=== PATIENT | female | born 1960 | race Caucasian/White ===

== ENCOUNTER 2019-10-20 16:58 | Observation (INO) | payer OTHER ==
--- NOTE | 2019-10-20 17:19 | PDOC ---
Rapid Medical Evaluation Time Seen by Provider: 10/20/19 17:14 Medical Evaluation: Allergies Allergy/AdvReac Type Severity Reaction Status Date / Time No Known Allergies Allergy Verified 01/16/15 16:46 10/20/19 17:15 I performed a brief in-person evaluation of this patient. Pt is a 59 y/o female who presents to the ED with complaint of upper abdominal pain. Started diffuse yesterday but is upper today. She denies nausea and vomiting. Pertinent physical exam findings: +epigastric abdominal pain to palp, no rebound or rigidity I have ordered the following: cbc, cmp Patient to proceed to ED for further evaluation. Discharge Disposition - Diagnosis Upper abdominal pain - Referrals - Patient Instructions - Post Discharge Activity
[2019-10-20 17:21] VITALS: BMI 24.2
[2019-10-20 18:00] LABS: BASO % 0.1 % (0-2.0); EOS % 1.2 % (0-4.5); HEMATOCRIT 39.4 % (32.4-45.2); HEMOGLOBIN 12.9 GM/dL (10.7-15.3); LYMPH % 13.9 % (8-40); MCH 28.1 pg (25.7-33.7); MCHC 32.8 g/dl (32.0-36.0); MEAN CELL VOLUME 85.7 fl (80-96); MEAN PLT VOLUME 8.4 fl (7.5-11.1); MONO % 7.9 % (3.8-10.2); NEUT % 76.9 % (42.8-82.8); PLATELET COUNT 266 K/MM3 (134-434); RDW 14.9 % (11.6-15.6); WHITE BLOOD COUNT 9.5 K/mm3 (4.0-10.0)
--- NOTE | 2019-10-20 18:03 | PDOC ---
History of Present Illness - General Chief Complaint: Pain Stated Complaint: ABDOMINAL PAIN Time Seen by Provider: 10/20/19 17:14 History Source: Patient, Old Records Exam Limitations: No Limitations - History of Present Illness Travel History: No Initial Comments: 10/20/19 17:59 HISTORY OF PRESENT ILLNESS: 59-year-old woman with past medical history of hypertension presents emergency department for evaluation of abdominal pain for 2 days which she describes as a "gassy" sensation. Patient reports the pain started as a diffuse abdominal pain yesterday and is now located in the upper abdomen worse in the epigastric region. She denies any nausea or vomiting. Patient reports she had a large bowel movement last night after 3 days from holding her stool due to traveling and not wanting to use strange toilets. Patient reports she was eating fruits and other people who ate similar foods are not having any symptoms. She denies fevers, chills, chest pain, shortness of breath. No recent travel or sick contacts. PAST MEDICAL HISTORY: Hypertension SURGICAL HISTORY: x2 ALLERGIES: No known drug allergies REVIEW OF SYSTEMS General/Constitutional: Denies fever or chills. Denies weakness, weight change. HEENT: Denies change in vision. Denies ear pain or discharge. Denies sore throat. Cardiovascular: Denies chest pain or shortness of breath. Respiratory: Denies cough, wheezing, or hemoptysis. Gastrointestinal: See HPI Genitourinary: Denies dysuria, frequency, or change in urination. Musculoskeletal: Denies joint or muscle swelling or pain. Denies neck or back pain. Skin and breasts: Denies rash or easy bruising. Neurologic: Denies headache, vertigo, loss of consciousness, or loss of sensation. Psychiatric: Denies depression or anxiety. Endocrine: Denies increased thirst. Denies abnormal weight change. Hematologic/Lymphatic: Denies anemia, easy bleeding, or history of blood clots. Allergic/Immunologic: Denies hives or skin allergy. Denies latex allergy. PHYSICAL EXAM General Appearance: Well-appearing, appropriately dressed. No apparent distress, no intoxication. HEENT: EOMI, PERRLA, normal ENT inspection, normal voice, TMs normal, pharynx normal. No conjunctival pallor. No photophobia, scleral icterus. Neck: Supple. Trachea midline. No tenderness, rigidity, carotid bruit, stridor, lymphadenopathy, or thyromegaly. Respiratory/Chest: Lungs CTAB. No shortness of breath, chest tenderness, respiratory distress, accessory muscle use. No crackles, rales, rhonchi, stridor, wheezing, dullness Cardiovascular: RRR. S1, S2. No JVD, murmur, bradycardia, tachycardia. Gastrointestinal/Abdominal: Normal bowel sounds. Abdomen soft, non-distended. Epigastric and right upper quadrant tenderness. No rebound tenderness. No organomegaly, pulsatile mass, guarding, hernia, hepatomegaly, splenomegaly. Lymphatic: No adenopathy, tenderness. Musculoskeletal/Extremities: Normal inspection. FROM of all extremities, normal capillary refill. Pelvis Stable. No CVA tenderness. No tenderness to extremities, pedal edema, swelling, erythema or deformity. Past History - Medical History Allergies/Adverse Reactions: Allergies Allergy/AdvReac Type Severity Reaction Status Date / Time No Known Allergies Allergy Verified 10/20/19 17:19 Home Medications: Ambulatory Orders NK [No Known Home Medication] 01/16/15 COPD: No HTN: Yes - Psycho-Social/Smoking History Smoking History: Never smoked - Substance Abuse Hx (Audit-C & DAST Scrn) How often the patient has a drink containing alcohol: Never Score: In Men: 4 or > Positive; In Women: 3 or > Positive: 0 Screen Result (Pos requires Nsg. Audit-10AR): Negative In the last yr the pt used illegal drug/Rx for NonMed reason: No Score: Yes response is considered Positive: 0 Screen Result (Positive result requires Nsg. DAST-10): Negative *Physical Exam - Vital Signs Last Vital Signs Temp Pulse Resp BP Pulse Ox 98.5 F 119 H 16 161/66 99 10/20/19 17:19 10/20/19 17:19 10/20/19 17:19 10/20/19 17:19 10/20/19 17:19 ED Treatment Course - LABORATORY CBC & Chemistry Diagram: 10/20/19 17:38 10/20/19 17:38 - RADIOLOGY Radiology Studies Ordered: Category Date Time Status CHEST PA & LAT [RAD] Stat Radiology 10/20/19 17:55 Ordered GALLBLADDER US [US] Stat Ultrasound 10/20/19 17:55 Ordered Medical Decision Making - Medical Decision Making 10/20/19 18:02 A/P: 59-year-old woman with abdominal pain for 2 days Heart rate noted at 119 upon arrival. S1-S2 present. No murmur, rub or gallop noted. Tenderness in the epigastric and right upper quadrant regions. No guarding is present Labs including troponin and lipase Urinalysis, urine culture EKG Chest x-ray Right upper quadrant ultrasound Reassess 10/20/19 21:16 Laboratory Tests 10/20/19 10/20/19 10/20/19 17:38 17:38 17:38 WBC 9.5 RBC 4.60 Hgb 12.9 Hct 39.4 MCV 85.7 MCH 28.1 MCHC 32.8 RDW 14.9 Plt Count 266 MPV 8.4 Absolute Neuts (auto) 7.3 Neutrophils % 76.9 Lymphocytes % 13.9 Monocytes % 7.9 Eosinophils % 1.2 Basophils % 0.1 Nucleated RBC % 0 Sodium 138 Potassium 3.7 Chloride 102 Carbon Dioxide 25 Anion Gap 11 BUN 10.0 Creatinine 0.6 Est GFR (CKD-EPI)AfAm 114.82 Est GFR (CKD-EPI)NonAf 99.07 Random Glucose 95 Calcium 9.3 Total Bilirubin 0.9 AST 17 ALT 24 Alkaline Phosphatase 91 Creatine Kinase 62 Troponin I < 0.02 Total Protein 8.2 Albumin 3.9 Lipase 684 H Urine Color Yellow Urine Appearance Clear Urine pH 8.0 Ur Specific [place] 1.005 L Urine Protein Negative Urine Glucose (UA) Negative Urine Ketones Negative Urine Blood Negative Urine Nitrite Negative Urine Bilirubin Negative Urine Urobilinogen 0.2 Ur Leukocyte Esterase Negative Patient remains tender in the epigastric region. Patient given sips of water which created increased pain in the epigastrium. Gallbladder ultrasound is read by imaging on-call: Midline hepatic cyst present. Gallbladder wall polyp. No gallstones or pericholecystic fluid present. As patient is continued to have pain I will contact the hospitalist for admiss ion for observation. Case has been discussed with nurse practitioner Dante of the hospitalist service who accepts patient under Dr. Hayward. Discharge - Discharge Information Problems reviewed: Yes Clinical Impression/Diagnosis: Elevated lipase Condition: Fair - Admission Yes - Follow up/Referral - Patient Discharge Instructions - Post Discharge Activity
[2019-10-20 18:04] LABS: URINE APPEARANCE CLEAR; URINE BILIRUBIN NEGATIVE (NEGATIVE); URINE COLOR YELLOW; URINE GLUCOSE (UA) NEGATIVE (NEGATIVE); URINE KETONE NEGATIVE (NEGATIVE); URINE LEUK ESTERASE NEGATIVE (NEGATIVE); URINE NITRITE NEGATIVE (NEGATIVE); URINE PROTEIN NEGATIVE (NEGATIVE); URINE UROBILINOGEN 0.2 mg/dL (0.2-1.0)
[2019-10-20] MEDS ORDERED: MAG HYDROX/AL HYDROX/SIMETH 30 ML UNIT-DOSE CUP PO ONE (18:10)
[2019-10-20] MEDS ORDERED: FAMOTIDINE 20 MG TABLET PO ONE (18:10)
[2019-10-20 18:43] LABS: ALBUMIN 3.9 g/dl (3.4-5.0); ALK PHOS 91 U/L (45-117); ANION GAP 11 MMOL/L (8-16); BILIRUBIN,TOTAL 0.9 mg/dL (0.2-1); CALCIUM 9.3 mg/dL (8.5-10.1); CHLORIDE 102 mmol/L (98-107); CO2 25 mmol/L (21-32); CREATININE 0.6 mg/dL (0.55-1.3); GLUCOSE,RANDOM 95 mg/dL (74-106); LIPASE 684 U/L (73-393); POTASSIUM 3.7 mmol/L (3.5-5.1); SGOT/AST 17 U/L (15-37); SGPT/ALT 24 U/L (13-61); SODIUM 138 mmol/L (136-145); TOT PROT 8.2 g/dl (6.4-8.2)
[2019-10-20] MEDS ORDERED: FAMOTIDINE 20 MG TABLET ONE (18:56)
[2019-10-20] MEDS ORDERED: MAG HYDROX/AL HYDROX/SIMETH 30 ML UNIT-DOSE CUP ONE (18:56)
[2019-10-20] MEDS ORDERED: SODIUM CHLORIDE 1,000 ML IV STA (20:27)
--- NOTE | 2019-10-20 21:20 | HP ---
CHIEF COMPLAINT: Abdominal Pain PCP: Dr Valadez HISTORY OF PRESENT ILLNESS: This is a 59 y/o female with a PMHx of HTN. Who presents to the ED with epigastric pain with radiation across the abdomen. Patient describes the pain as a constant ache. Patient reports eating hotdogs the night before and having c ereal with milk that today. She reports having 3 BMs formed. Patient denies N/V, diarrhea. Patient denies fever, chills, cough, SOB, dizziness, BOWLING, CP, palpitations, melena, hematochezia, hematuria, dysuria. No baseline Colonoscopy ER course was notable for: (1) Lipase 684 (2) Gallbladder US- midline hepatic cyst present. Gallbladder wall polyp. No gallstones or pericholecystic fluid present (3) Recent Travel: None PAST MEDICAL HISTORY: HTN PAST SURGICAL HISTORY: x2 Social History: Smoking: Never Alcohol: Denies Drugs: Denies Lives with family, employed [employer], [employer] [facility] [facility] Allergies No Known Allergies Allergy (Verified 10/20/19 17:19) HOME MEDICATIONS: Home Medications Medication Instructions Recorded NK [No Known Home Medication] 01/16/15 REVIEW OF SYSTEMS CONSTITUTIONAL: loss of appetite Absent: fever, chills, diaphoresis, generalized weakness, malaise, weight change HEENT: Absent: rhinorrhea, nasal congestion, throat pain, throat swelling, difficulty swallowing, mouth swelling, ear pain, eye pain, visual changes CARDIOVASCULAR: Absent: chest pain, syncope, palpitations, irregular heart rate, lightheadedness, peripheral edema RESPIRATORY: Absent: cough, shortness of breath, dyspnea with exertion, orthopnea, wheezing, stridor, hemoptysis GASTROINTESTINAL: abdominal pain Absent: abdominal distension, nausea, vomiting, diarrhea, constipation, melena, hematochezia GENITOURINARY: Absent: dysuria, frequency, urgency, hesitancy, hematuria, flank pain, genital pain MUSCULOSKELETAL: Absent: myalgia, arthralgia, joint swelling, back pain, neck pain SKIN: Absent: rash, itching, pallor HEMATOLOGIC/IMMUNOLOGIC: Absent: easy bleeding, easy bruising, lymphadenopathy, frequent infections ENDOCRINE: Absent: unexplained weight gain, unexplained weight loss, heat intolerance, cold intolerance NEUROLOGIC: Absent: headache, focal weakness or paresthesias, dizziness, unsteady gait, seizure, mental status changes, bladder or bowel incontinence PSYCHIATRIC: Absent: anxiety, depression, suicidal or homicidal ideation, hallucinations. PHYSICAL EXAMINATION Vital Signs - 24 hr 10/20/19 17:19 Temperature 98.5 F Pulse Rate 119 H Respiratory 16 Rate Blood Pressure 161/66 O2 Sat by Pulse 99 Oximetry (%) GENERAL: Awake, alert, and fully oriented, in no acute distress. HEAD: Normal with no signs of trauma. EYES: Pupils equal, round and reactive to light, extraocular movements intact, sclera anicteric, conjunctiva clear. No lid lag. EARS, NOSE, THROAT: Dry mucous membranes. ears normal, nares patent, oropharynx clear without exudates. NECK: Normal range of motion, supple without lymphadenopathy, JVD, or masses. LUNGS: Breath sounds equal, clear to auscultation bilaterally. No wheezes, and no crackles. No accessory muscle use. HEART: Regular rate and rhythm, normal S1 and S2 without murmur, rub or gallop. ABDOMEN:Tenderness to epigastrium, soft, not distended, normoactive bowel sounds, no guarding, no rebound, no masses. No hepatomegaly or splenomegaly. MUSCULOSKELETAL: Normal range of motion at all joints. No bony deformities or tenderness. No CVA tenderness. UPPER EXTREMITIES: 2+ pulses, warm, well-perfused. No cyanosis. No clubbing. No peripheral edema. LOWER EXTREMITIES: 2+ pulses, warm, well-perfused. No calf tenderness. No peripheral edema. NEUROLOGICAL: Cranial nerves II-XII intact. Normal speech. Gait not observed. PSYCHIATRIC: Cooperative. Good eye contact. Appropriate mood and affect. SKIN: Warm, dry, normal turgor, no rashes or lesions noted, normal capillary refill. Laboratory Results - last 24 hr 10/20/19 10/20/19 10/20/19 17:38 17:38 17:38 WBC 9.5 RBC 4.60 Hgb 12.9 Hct 39.4 MCV 85.7 MCH 28.1 MCHC 32.8 RDW 14.9 Plt Count 266 MPV 8.4 Absolute Neuts (auto) 7.3 Neutrophils % 76.9 Lymphocytes % 13.9 Monocytes % 7.9 Eosinophils % 1.2 Basophils % 0.1 Nucleated RBC % 0 Sodium 138 Potassium 3.7 Chloride 102 Carbon Dioxide 25 Anion Gap 11 BUN 10.0 Creatinine 0.6 Est GFR (CKD-EPI)AfAm 114.82 Est GFR (CKD-EPI)NonAf 99.07 Random Glucose 95 Calcium 9.3 Total Bilirubin 0.9 AST 17 ALT 24 Alkaline Phosphatase 91 Creatine Kinase 62 Troponin I < 0.02 Total Protein 8.2 Albumin 3.9 Lipase 684 H Urine Color Yellow Urine Appearance Clear Urine pH 8.0 Ur Specific [place] 1.005 L Urine Protein Negative Urine Glucose (UA) Negative Urine Ketones Negative Urine Blood Negative Urine Nitrite Negative Urine Bilirubin Negative Urine Urobilinogen 0.2 Ur Leukocyte Esterase Negative ASSESSMENT/PLAN: This is a 59 y/o female with a PMHx of HTN. Admitted for Intractable Abdominal Pain, Elevated Lipase for further evaluation of their emergent condition. Plan: See Problem List FEN LR@75ML/hr Replete lytes prn NPO DVT ppx OOB SCDs Heparin SQ Code Status: Full Code Dispo: Requires Inpatient Care Family Medical History Family Hx Cancer: Sister (Breast-remission) Family Hx Coronary Artery Disease: Father (HTN) Family Hx Psychiatric Problems: Mother (Depression- age 52) Other Family History: Sister- Lupus Problem List - Problem (1) Intractable abdominal pain Assessment/Plan: r/o Pancreatitis vs GERD vs PUD vs OR vs COVID-19 Lipase 684 Gallbladder US imaging reviewed, read by imaging bath design sales consultant- Midline hepatic cyst present, Gallbladder wall polyp. No gallstones or pericholecystic fluid present Mylanta, Pepcid given in ED Continue gentle IVF Appreciate GI consult Consider Surgical consult if condition worsens Monitor CBC, CMP Monitor vitals Ofirmev prn Code(s): R10.9 - UNSPECIFIED ABDOMINAL PAIN (2) Elevated lipase Assessment/Plan: Likely secondary to Pancreatitis vs OR vs PUD vs GERD Trend CMP Troponin I neg x1 Patient reports some relief with Mylanta and Pepcid Code(s): R74.8 - ABNORMAL LEVELS OF OTHER SERUM ENZYMES (3) HTN (hypertension) Assessment/Plan: Stable Monitor BP Continue Losartan Monitor renal function Code(s): I10 - ESSENTIAL (PRIMARY) HYPERTENSION (4) Encounter for screening laboratory testing for COVID-19 virus Assessment/Plan: SMART-MANAGER ACTION 0, low risk COVID 19 PCR-pending Isolation Precautions Code(s): Z11.59 - ENCOUNTER FOR SCREENING FOR OTHER VIRAL DISEASES Visit type - Emergency Visit Emergency Visit: Yes ED Registration Date: 10/20/19 Care time: The patient presented to the Emergency Department on the above date and was hospitalized for further evaluation of their emergent condition. - New Patient This patient is new to me today: Yes Date on this admission: 10/20/19 - Critical Care Critical Care patient: No
[2019-10-20] MEDS ORDERED: HEPARIN NA (PORCINE) 5,000 UNITS/ML 1ML VIAL ONE (22:34)
[2019-10-20] MEDS: HEPARIN NA (PORCINE) 5,000 UNITS/ML 1ML VIAL SQ SCH (22:38)
[2019-10-20] MEDS ORDERED: LOSARTAN POTASSIUM 50 MG TABLET (FP) ONE (23:10)
[2019-10-20] MEDS ORDERED: LACTATED RINGERS SOLUTION 1,000 ML/1,000 ML INFUS.BAG IV SCH (23:15)
[2019-10-20] MEDS: LOSARTAN POTASSIUM 50 MG TABLET (FP) PO SCH (23:18)
[2019-10-21] MEDS ORDERED: ACETAMINOPHEN 325 MG TABLET (FP) PO ONE (03:45)
[2019-10-21] MEDS ORDERED: ACETAMINOPHEN 325 MG TABLET (FP) ONE (04:56)
[2019-10-21 07:35] LABS: BASO % 0.2 % (0-2.0); EOS % 1.7 % (0-4.5); LYMPH % 13.9 % (8-40); MCH 27.4 pg (25.7-33.7); MCHC 32.3 g/dl (32.0-36.0); MEAN CELL VOLUME 84.9 fl (80-96); MEAN PLT VOLUME 8.4 fl (7.5-11.1); MONO % 4.5 % (3.8-10.2); NEUT % 79.7 % (42.8-82.8); PLATELET COUNT 214 K/MM3 (134-434); RDW 14.9 % (11.6-15.6); WHITE BLOOD COUNT 8.7 K/mm3 (4.0-10.0)
[2019-10-21 08:05] LABS: ALBUMIN 3.2 g/dl (3.4-5.0); BLOOD UREA NITROGEN 8.1 mg/dL (7-18); CALCIUM 8.6 mg/dL (8.5-10.1); POTASSIUM 3.8 mmol/L (3.5-5.1)
[2019-10-21 08:10] LABS: BILIRUBIN,TOTAL 1.2 mg/dL (0.2-1); CREATININE 0.4 mg/dL (0.55-1.3); TOT PROT 7.1 g/dl (6.4-8.2)
--- NOTE | 2019-10-21 09:19 | PN ---
Progress Note (short form) - Note Progress Note: GI CONSULT DICTATED ORDERED MRCP / FULL LIQUID DIET / REPEAT LIPASE
[2019-10-21] MEDS ORDERED: HEPARIN NA (PORCINE) 5,000 UNITS/ML 1ML VIAL ONE (10:17)
[2019-10-21] MEDS ORDERED: FAMOTIDINE 20 MG/50 ML IVPB 20 MG/50 ML MG IVPB ONE (10:17)
[2019-10-21] MEDS: HEPARIN NA (PORCINE) 5,000 UNITS/ML 1ML VIAL SQ SCH ×2 (10:20→22:56)
[2019-10-21] MEDS: FAMOTIDINE 20 MG/50 ML IVPB 20 MG/50 ML MG IVPB SCH ×2 (10:20→22:56)
--- NOTE | 2019-10-21 14:34 | CONS ---
DATE OF CONSULTATION: DATE OF DICTATION: 10/21/2019 GASTROENTEROLOGY CONSULTATION HISTORY OF PRESENT ILLNESS: Patient is a 59-year-old female with a past medical history of hypertension who presented to the hospital with a 2-day history of epigastric abdominal pain, radiation across the abdomen. She states that her pain began after eating hot dogs and having cereal the following morning with milk, questionable it . She reports her pain improving after having a bowel movement prior to coming to the hospital; however, the pain did not completely resolve prompting her to come to the ER for evaluation. She states that her pain is better at this time. She denies nausea, vomiting, melena, hematochezia or hematemesis. She has never had an endoscopic evaluation. She does not have a history of pancreatitis in the past. PAST MEDICAL AND SURGICAL HISTORY: As listed in the HPI with the addition of a . SOCIAL HISTORY: Does not smoke, drink or use drugs. ALLERGIES: No known drug allergies. HOME MEDICATION: She denies any home medications. REVIEW OF SYSTEMS: As per the HPI. PHYSICAL EXAMINATION:Vital Signs: Temperature 97, pulse 78, blood pressure 144/69, respiratory rate 18, oxygen saturation 98% on room air. General: No acute distress. HEENT: Anicteric sclerae. Cardiovascular: S1-S2, regular rate and rhythm. Lungs: Bilaterally clear to auscultation. Abdomen: Soft and nontender. Extremities: Without edema. LABORATORIES: White blood cell count 8.7, hemoglobin 11, hematocrit 34, MCV 84, platelet count 214. Sodium 139, potassium 3.8, BUN 8, creatinine 0.4, glucose 104, total bilirubin 1.2, AST 14, ALT 20, alkaline phosphatase 74, lipase 684. Cultures are pending. She had gallbladder ultrasound which revealed hepatic cyst, possible gallbladder polyps, although neoplasia cannot be excluded. Short-term followup was recommended. IMPRESSION: Abdominal pain with associated abnormal lipase. Differential diagnosis includes an infectious etiology vs. a biliary etiology vs. primary gastric etiology - pud. RECOMMENDATIONS: Her diet can be advanced to a full liquid diet and as tolerated. Would recommend additional imaging such as an MRCP to further evaluate her biliary tree. Antiemetics for nausea. PPI therapy. If these tests are negative and she tolerates full diet she can be discharged with outpatient followup for upper endoscopy. DO SAMUEL CRUZ/[id number] MARIO
--- NOTE | 2019-10-21 18:47 | PN ---
Physical Exam: SUBJECTIVE: Patient seen and examined at bedside, endorses resolution of pain, MRCP showing gall bladder polyps otherwise unremarkable, will start clears as tolerated. OBJECTIVE: Vital Signs Period Temp Pulse Resp BP Sys/Bruce Pulse Ox Last 24 Hr 97.4 F-98.5 F 78-88 16-19 133-163/69-91 98-100 GENERAL: The patient is awake, alert, and fully oriented, in no acute distress. HEAD: Normal with no signs of trauma. EYES: PERRL, extraocular movements intact, sclera anicteric, conjunctiva clear. No ptosis. ENT: Ears normal, nares patent, oropharynx clear without exudates, moist mucous membranes. NECK: Trachea midline, full range of motion, supple. LUNGS: Breath sounds equal, clear to auscultation bilaterally, no wheezes, no crackles, no accessory muscle use. HEART: Regular rate and rhythm, S1, S2 without murmur, rub or gallop. ABDOMEN: Soft, nontender, nondistended, normoactive bowel sounds, no guarding, no rebound, no hepatosplenomegaly, no masses. EXTREMITIES: 2+ pulses, warm, well-perfused, no edema. NEUROLOGICAL: Cranial nerves II through XII grossly intact. Normal speech, gait not observed. PSYCH: Normal mood, normal affect. SKIN: Warm, dry, normal turgor, no rashes or lesions noted Laboratory Results - last 24 hr 10/21/19 10/21/19 10/21/19 06:40 06:40 16:31 WBC 8.7 RBC 4.00 Hgb 11.0 Hct 34.0 MCV 84.9 MCH 27.4 MCHC 32.3 RDW 14.9 Plt Count 214 MPV 8.4 Absolute Neuts (auto) 6.9 Neutrophils % 79.7 Lymphocytes % 13.9 Monocytes % 4.5 Eosinophils % 1.7 Basophils % 0.2 Nucleated RBC % 0 Sodium 139 Potassium 3.8 Chloride 107 Carbon Dioxide 24 Anion Gap 9 BUN 8.1 Creatinine 0.4 L Est GFR (CKD-EPI)AfAm 131.21 Est GFR (CKD-EPI)NonAf 113.21 Random Glucose 104 Calcium 8.6 Total Bilirubin 1.2 H AST 14 L ALT 20 Alkaline Phosphatase 74 Total Protein 7.1 Albumin 3.2 L Total Amylase 137 H Lipase 238 Active Medications Generic Name Dose Route Start Last Admin Trade Name Freq PRN Reason Stop Dose Admin Heparin Sodium (Porcine) 5,000 unit 10/20/19 22:00 10/21/19 10:20 Heparin - SQ 5,000 unit BID TREY Administration Lactated Ringer's 1,000 ml in 1,000 mls @ 75 mls/hr 10/20/19 23:15 10/20/19 23:18 Lactated Ringers Solution IV 75 mls/hr ASDIR TREY Administration Famotidine/Sodium Chloride 20 mg in 50 mls @ 100 mls/hr 10/21/19 10:00 10/21/19 10:20 Pepcid 20 Mg Premixed Ivpb - IVPB 100 mls/hr BID TREY Administration Losartan Potassium 50 mg 10/20/19 23:07 10/20/19 23:18 Cozaar - PO 50 mg HS TREY Administration ASSESSMENT: 59 F Biliary colic HTN Plan: MRCP showing gallbladder polyps Will start clear liquid>>full liquid, if tolerating diet DC with GI clinic follow up GI following DC when tolerating FULL LIQUID Visit type - Emergency Visit Emergency Visit: Yes ED Registration Date: 10/20/19 Care time: The patient presented to the Emergency Department on the above date and was hospitalized for further evaluation of their emergent condition. - New Patient This patient is new to me today: Yes Date on this admission: 10/21/19 - Critical Care Critical Care patient: No - Discharge Referral Referred to [facility] No
[2019-10-21 22:22] VITALS: BP 160/88; PULSE 88; TEMP 98.3
[2019-10-21] MEDS: LOSARTAN POTASSIUM 50 MG TABLET (FP) PO SCH (22:55)
--- NOTE | 2019-10-22 08:24 | PN.GI ---
GI Progress Note - Objective Vital Signs: Vital Signs Temperature 98.3 F 10/21/19 22:21 Pulse Rate 88 10/21/19 22:21 Respiratory Rate 18 10/21/19 19:13 Blood Pressure 160/88 10/21/19 22:21 O2 Sat by Pulse Oximetry (%) 98 10/21/19 22:21 Labs: CBC, BMP 10/21/19 06:40 10/21/19 06:40
--- NOTE | 2019-10-22 14:15 | EKG ---
Test Reason : Blood Pressure : / mmHG Vent. Rate : 110 BPM Atrial Rate : 110 BPM P-R Int : 154 ms QRS Dur : 074 ms QT Int : 314 ms P-R-T Axes : 055 -02 014 degrees QTc Int : 424 ms SINUS TACHYCARDIA POSSIBLE LEFT ATRIAL ENLARGEMENT NONSPECIFIC ST ABNORMALITY ABNORMAL ECG NO PREVIOUS ECGS AVAILABLE Confirmed by GINNY ARMSTRONG MD ([id number]) on 10/22/2019 2:14:53 PM Referred By: Confirmed By:GINNY ARMSTRONG MD
== END 2019-10-21 22:21 | disposition short-term general hospital (02) ==
LOC: JER 16:58 → JERBED 21:17
PROVIDERS: ADMIT Internal Medicine
PROC: 3E0337Z Introduction of Electrolytic and Water Balance Substance into Peripheral Vein, Percutaneous Approach (ICD-10-PCS; principal; 2019-10-20)
DX: Z03.818 Encounter for observation for suspected exposure to other biological agents ruled out (principal); R74.8 Abnormal levels of other serum enzymes; I10 Essential (primary) hypertension; K76.89 Other specified diseases of liver; R10.10 Upper abdominal pain, unspecified
CPT/HCPCS: 36415; 71046-TC-FY; 74181-TC; 76705-TC; 80053; 81003; 82150; 82550; 83690; 84484; 85025; 87086; 87522; 93005; 93010; 99285-25; G0378; J1644; U0003